=== PATIENT | male | born 1985 | race American Indian/Alaskan Native ===

== ENCOUNTER 2017-01-16 02:00 | Emergency (ER) | payer OTHER ==
[2017-01-16 02:14] VITALS: BP 151/99
== END 2017-01-16 02:40 | disposition left against medical advice (07) ==
LOC: ED 02:00
DX: R06.02 Shortness of breath (principal); Z53.21 Procedure and treatment not carried out due to patient leaving prior to being seen by health care provider

== ENCOUNTER 2017-05-15 10:32 | Emergency (ER) | payer SELFPAY ==
[2017-05-15 10:44] VITALS: BP 142/85
== END 2017-05-15 12:00 | disposition left against medical advice (07) ==
LOC: ED 10:32
DX: R21 Rash and other nonspecific skin eruption (principal); Z53.21 Procedure and treatment not carried out due to patient leaving prior to being seen by health care provider

== ENCOUNTER 2017-05-19 22:14 | Emergency (ER) | payer SELFPAY ==
[2017-05-20] MEDS ORDERED: ULTRAM PO ONE (00:44)
[2017-05-20] MEDS ORDERED: ULTRAM ONE (00:46)
[2017-05-20 04:00] VITALS: BP 150/90
[2017-05-20] MEDS ORDERED: POLYSPORIN TP ONE (04:46)
[2017-05-20] MEDS ORDERED: ANTIBIOTIC OINT TP ONE (04:52)
[2017-05-20] MEDS ORDERED: TRIPLE ANTIBIOTIC TP ONE (04:52)
--- NOTE | 2017-05-20 06:02 | Emergency Department Report ---
- General Chief Complaint: Wound/Laceration Stated Complaint: R BUTTOCK PAIN Source: patient Mode of arrival: Ambulatory Limitations: No Limitations - History of Present Illness Initial Comments: 31 year old male presents to ED stating he has a tear inside of his buttock. patient is stable, neurologically intact and in no acute distress. patient denies blood in stool, and denies pain with bowel movements. patient states he is unsure how he obtained this "tear". -: Gradual, week(s) (1) Location: other (buttock) Context: other (unknown) Associated Symptoms: none - Related Data Home Medications Medication Instructions Recorded Confirmed Last Taken Podofilox mg TRANSDERMA BID 04/15/16 Unknown Allergies Allergy/AdvReac Type Severity Reaction Status Date / Time codeine Allergy Itching Verified 05/15/17 10:38 ED Review of Systems ROS: Stated complaint: R BUTTOCK PAIN Other details as noted in HPI Constitutional: denies: chills, fever Eyes: denies: eye pain, eye discharge, vision change ENT: denies: ear pain, throat pain Respiratory: denies: cough, shortness of breath, wheezing Cardiovascular: denies: chest pain, palpitations Endocrine: no symptoms reported Gastrointestinal: denies: abdominal pain, nausea, diarrhea Genitourinary: denies: urgency, dysuria Musculoskeletal: denies: back pain, joint swelling, arthralgia Skin: denies: rash, lesions Neurological: denies: headache, weakness, paresthesias Psychiatric: denies: anxiety, depression Hematological/Lymphatic: denies: easy bleeding, easy bruising ED Past Medical Hx - Past Medical History Hx Hypertension: Yes Hx GERD: Yes Additional medical history: Genital Warts - Surgical History Hx Open Heart Surgery: Yes (Aortic Valve Surgery) Additional Surgical History: aortic valve opening - Social History Smoking Status: Never Smoker Substance Use Type: Alcohol - Medications Home Medications: Home Medications Medication Instructions Recorded Confirmed Last Taken Type Podofilox mg TRANSDERMA BID 04/15/16 Unknown History ED Physical Exam - General Limitations: No Limitations General appearance: alert, in no apparent distress - Head Head exam: Present: atraumatic, normocephalic - Eye Eye exam: Present: normal appearance - ENT ENT exam: Present: mucous membranes moist - Neck Neck exam: Present: normal inspection - Respiratory Respiratory exam: Present: normal lung sounds bilaterally. Absent: respiratory distress - Cardiovascular Cardiovascular Exam: Present: regular rate, normal rhythm. Absent: systolic murmur, diastolic murmur, rubs, gallop - GI/Abdominal GI/Abdominal exam: Present: soft, normal bowel sounds. Absent: distended, tenderness - Rectal Rectal exam: Present: deferred - Extremities Exam Extremities exam: Present: normal inspection - Back Exam Back exam: Present: normal inspection - Neurological Exam Neurological exam: Present: alert, oriented X3 - Psychiatric Psychiatric exam: Present: normal affect, normal mood - Skin Skin exam: Present: warm, dry, intact, normal color, abrasion (patient has 2cm non infected appearing abrasion to intergluteal cleft. no bleeding noted. mild tenderness to palpation). Absent: rash ED Course Vital Signs 05/19/17 05/20/17 22:47 03:25 Temperature 97.9 F 97.8 F Pulse Rate 63 60 Respiratory 18 16 Rate Blood Pressure 150/92 Blood Pressure 150/90 [Right] O2 Sat by Pulse 100 99 Oximetry ED Medical Decision Making - Medical Decision Making 31 year old male presents to ED with minor abrasion to intergluteal cleft. patient will be given bacitracin ointment for application BID. patient is stable , neurologically intact and in no acute distress. Critical care attestation.: If time is entered above; I have spent that time in minutes in the direct care of this critically ill patient, excluding procedure time. ED Disposition Clinical Impression: Abrasion or friction burn of buttock without infection Disposition: DC-01 TO HOME OR SELFCARE Is pt being admited?: No Does the pt Need Aspirin: No Condition: Stable Instructions: Abrasion (ED) Referrals: PRIMARY CARE, [Primary Care Provider] - 3-5 Days Forms: Work/School Release Form(ED)
== END 2017-05-20 05:32 | disposition home or self-care (01) ==
LOC: ED 22:14
DX: S30.810A Abrasion of lower back and pelvis, initial encounter (principal); I10 Essential (primary) hypertension; K21.9 Gastro-esophageal reflux disease without esophagitis; Z88.6 Allergy status to analgesic agent; X58.XXXA Exposure to other specified factors, initial encounter; Y93.89 Activity, other specified; Y92.89 Other specified places as the place of occurrence of the external cause; Y99.8 Other external cause status
CPT/HCPCS: 99282; A6250

== ENCOUNTER 2017-08-07 10:54 | Emergency (ER) | payer SELFPAY ==
[2017-08-07 11:03] VITALS: BP 145/91
== END 2017-08-07 13:11 | disposition left against medical advice (07) ==
LOC: ED 10:54
DX: Z53.21 Procedure and treatment not carried out due to patient leaving prior to being seen by health care provider (principal)

== ENCOUNTER 2017-08-08 01:47 | Emergency (ER) | payer SELFPAY ==
[2017-08-08 05:38] VITALS: BP 150/90
--- NOTE | 2017-08-08 09:01 | Emergency Department Report ---
HPI - General Chief Complaint: Urogenital-Male Time Seen by Provider: 08/08/17 08:55 - HPI HPI: 32-year-old -[place]ue[place] male male with that's homosexual comes in for rectal itchiness after defecation for one week. Patient does admit to having hemorrhoids and has been using his Anusol suppositories but is having itchiness around the anus. Patient has no other concerns denies any blood in his stool a discharge from his anus. Denies any pain at all. ED Past Medical Hx - Past Medical History Hx Hypertension: Yes Hx GERD: Yes Additional medical history: Genital Warts - Surgical History Hx Open Heart Surgery: Yes (Aortic Valve Surgery) Additional Surgical History: aortic valve opening - Social History Smoking Status: Never Smoker Substance Use Type: None - Medications Home Medications: Home Medications Medication Instructions Recorded Confirmed Last Taken Type Podofilox mg TRANSDERMA BID 04/15/16 Unknown History ED Review of Systems ROS: Stated complaint: BODY RASH Other details as noted in HPI Comment: All other systems reviewed and negative Constitutional: denies: chills, fever Eyes: denies: eye pain, eye discharge, vision change ENT: denies: ear pain, throat pain Respiratory: denies: cough, shortness of breath, wheezing Cardiovascular: denies: chest pain, palpitations Endocrine: no symptoms reported Gastrointestinal: other (anus itching) Genitourinary: denies: urgency, dysuria Musculoskeletal: denies: back pain, joint swelling, arthralgia Skin: denies: rash, lesions Neurological: denies: headache, weakness, paresthesias Physical Exam - Physical Exam Vital Signs: Vital Signs 08/08/17 05:31 Temperature 98 F Pulse Rate 69 Respiratory 16 Rate Blood Pressure 150/90 O2 Sat by Pulse 99 Oximetry General: Nontoxic no acute distress cooperative. Physical Exam: GENERAL APPEARANCE: Well developed, well nourished, in no acute distress. SKIN: Inspection of the skin reveals no rashes, ulcerations or petechiae. RECTAL: Normal perineal exam. Sphincter tone was normal. There was no external hemorrhoids or rectal masses. Stool Hemoccult was negative. Able to appreciate internal hemorrhoids that are nonthrombosed. LYMPH NODES: No lymphadenopathy was appreciated in the groin. EXTREMITIES: No cyanosis, clubbing or edema. NEUROLOGIC: Alert and oriented x 3. Normal affect. Gait was normal. Normal deep tendon reflexes with no pathological reflexes. Sensation to touch was normal. ED Course Vital Signs 08/08/17 05:31 Temperature 98 F Pulse Rate 69 Respiratory 16 Rate Blood Pressure 150/90 O2 Sat by Pulse 99 Oximetry ED Medical Decision Making - Medical Decision Making Patient has been evaluated by this provider fast track. Discussed with patient he needs to use the Anusol suppositories for the internal hemorrhoids. I discussed with him to use Tucks pads to clean the external area of the anus. I also recommended witch supriya for the itchiness as well as after he defecates to clean himself very well. Patient verbalized understanding. Critical care attestation.: If time is entered above; I have spent that time in minutes in the direct care of this critically ill patient, excluding procedure time. ED Disposition Clinical Impression: Rectal itching Disposition: DC-01 TO HOME OR SELFCARE Is pt being admited?: No Does the pt Need Aspirin: No Condition: Stable Additional Instructions: Please use witch supriya or Tucks to clean the anal area. You can continue with the Anusol for the internal hemorrhoids. Follow-up with your primary care provider a environmental services assistant. Referrals: KEISHA SALAZAR MD [Primary Care Provider] - 3-5 Days [facility] [Provider Group] - 3-5 Days Forms: Work/School Release Form(ED)
== END 2017-08-08 09:34 | disposition home or self-care (01) ==
LOC: ED 01:47
DX: K62.89 Other specified diseases of anus and rectum (principal); L29.9 Pruritus, unspecified; I10 Essential (primary) hypertension; K21.9 Gastro-esophageal reflux disease without esophagitis
CPT/HCPCS: 99282

== ENCOUNTER 2018-01-11 19:27 | Emergency (ER) | payer SELFPAY ==
[2018-01-11 19:48] VITALS: BP 149/84
[2018-01-12] MEDS ORDERED: MOTRIN PO ONE (00:03)
--- NOTE | 2018-01-12 00:10 | Emergency Department Report ---
ED General Adult HPI - General Chief complaint: Pain General Stated complaint: FACIAL PAIN Time Seen by Provider: 01/12/18 00:00 Source: patient Mode of arrival: Ambulatory Limitations: No Limitations - History of Present Illness Initial comments: 32-year-old -[place] male comes in complaining for sinus congestion. Patient reports that this going on for 1 week. He admits to nasal congestion, headache, sneezing, runny nose, coughing. Patient denies any fever chills or nausea no vomiting. Patient reports he is taking [id number] sinus medication. Patient has not taken anything for his pain today. -: week(s) (1) Location: head, face Severity scale (0 -10): 8 Quality: stabbing, aching Consistency: constant Improves with: none Associated Symptoms: cough, headaches - Related Data Home Medications Medication Instructions Recorded Confirmed Last Taken Podofilox mg TRANSDERMA BID 04/15/16 Unknown Allergies Allergy/AdvReac Type Severity Reaction Status Date / Time codeine Allergy Itching Verified 05/15/17 10:38 ED Review of Systems ROS: Stated complaint: FACIAL PAIN Other details as noted in HPI ED Past Medical Hx - Past Medical History Hx Hypertension: Yes Hx GERD: Yes Additional medical history: Genital Warts - Surgical History Hx Open Heart Surgery: Yes (Aortic Valve Surgery) Additional Surgical History: aortic valve opening - Social History Smoking Status: Never Smoker Substance Use Type: Alcohol - Medications Home Medications: Home Medications Medication Instructions Recorded Confirmed Last Taken Type Podofilox mg TRANSDERMA BID 04/15/16 Unknown History ED Physical Exam - General Limitations: No Limitations ED Course Vital Signs 01/11/18 01/11/18 19:47 19:57 Temperature 98.3 F 98.3 F Pulse Rate 60 60 Respiratory 16 16 Rate Blood Pressure 149/84 Blood Pressure 149/84 [Right] O2 Sat by Pulse 100 100 Oximetry Critical care attestation.: If time is entered above; I have spent that time in minutes in the direct care of this critically ill patient, excluding procedure time. ED Disposition Condition: Stable Referrals: PRIMARY CARE, [Primary Care Provider] - 3-5 Days
--- NOTE | 2018-01-12 00:17 | Emergency Department Report ---
Chief Complaint: Pain General Stated Complaint: FACIAL PAIN Time Seen by Provider: 01/12/18 00:00 - HPI History of Present Illness: 32-year-old -[place] male comes in complaining for sinus congestion. Patient reports that this going on for 1 week. He admits to nasal congestion, headache, sneezing, runny nose, coughing. Patient denies any fever chills or nausea no vomiting. Patient reports he is taking [id number] sinus medication. Patient has not taken anything for his pain today. - Exam Vital Signs: Vital Signs 01/11/18 01/11/18 19:47 19:57 Temperature 98.3 F 98.3 F Pulse Rate 60 60 Respiratory 16 16 Rate Blood Pressure 149/84 Blood Pressure 149/84 [Right] O2 Sat by Pulse 100 100 Oximetry Physical Exam: Patient's alert and oriented 3 no acute distress. Ears are clear. Turbinates in the nose are hypertrophic Chest is clear to auscultation MSE screening note: Focused history and physical exam performed. Due to findings the following was ordered: Discussed the patient should follow-up with [facility] he can obtain [id number] Monet-D, Claritin-D, Zyrtec-D and ibuprofen 800 mg. ED Disposition for MSE Condition: Stable Referrals: PRIMARY CARE, [Primary Care Provider] - 3-5 Days Forms: Work/School Release Form(ED)
== END 2018-01-12 00:01 | disposition left against medical advice (07) ==
LOC: ED 19:27
DX: R09.81 Nasal congestion (principal); R51 Headache; Z53.21 Procedure and treatment not carried out due to patient leaving prior to being seen by health care provider

== ENCOUNTER → 2018-04-18 09:17 | Emergency (ER) | payer SELFPAY | END | disposition left against medical advice (07) | LOC: ED 09:17 | DX: R10.30 Lower abdominal pain, unspecified (principal); Z53.21 Procedure and treatment not carried out due to patient leaving prior to being seen by health care provider ==

== ENCOUNTER 2018-04-19 03:49 | Emergency (ER) | payer SELFPAY ==
[2018-04-19 04:00] VITALS: BP 140/82
== END 2018-04-19 04:40 | disposition left against medical advice (07) ==
LOC: ED 03:49
DX: R21 Rash and other nonspecific skin eruption (principal); Z53.21 Procedure and treatment not carried out due to patient leaving prior to being seen by health care provider

== ENCOUNTER 2018-05-08 13:24 | Emergency (ER) | payer SELFPAY ==
[2018-05-08 13:37] VITALS: BP 139/88
== END 2018-05-08 14:25 | disposition left against medical advice (07) ==
LOC: ED 13:24
DX: H10.32 Unspecified acute conjunctivitis, left eye (principal); Z53.21 Procedure and treatment not carried out due to patient leaving prior to being seen by health care provider

== ENCOUNTER 2019-01-24 16:36 | Emergency (ER) | payer SELFPAY ==
--- NOTE | 2019-01-24 17:04 | Emergency Department Report ---
Blank Doc - Documentation Documentation: This is a 33-year-old male that presents with increased thirst. Denies any ot her complaints. This initial assessment/diagnostic orders/clinical plan/treatment(s) is/are subject to change based on patient's health status, clinical progression and re- assessment by fellow clinical providers in the ED. Further treatment and workup at subsequent clinical providers discretion. Patient/guardians urged not to elope from the ED as their condition may be serious if not clinically assessed and managed. Initial orders include: 1- Patient sent to [facility] for further evaluation and treatment 2- ua 3- labs
[2019-01-24 17:05] VITALS: BP 152/91
[2019-01-24 17:38] LABS: Bilirubin,Urine NEG (Negative); Blood,Urine NEG (Negative); Color,Urine Straw (Yellow); Protein,Urine <15 mg/dL mg/dL (Negative); Urobilinogen,Urine < 2.0 mg/dL (<2.0)
[2019-01-24 17:50] LABS: WBC,Urine < 1.0 /HPF (0.0-6.0)
== END 2019-01-24 17:04 | disposition left against medical advice (07) ==
LOC: ED 16:36
DX: E86.0 Dehydration (principal); Z53.21 Procedure and treatment not carried out due to patient leaving prior to being seen by health care provider
CPT/HCPCS: 81001; 82962

== ENCOUNTER 2019-09-23 09:17 | Emergency (ER) | payer SELFPAY ==
--- NOTE | 2019-09-23 09:42 | Emergency Department Report ---
ED Rash HPI - HPI Chief Complaint: Skin Rash Stated Complaint: FACE VÁZQUEZ Time Seen by Provider: 09/23/19 09:32 Duration: 2 Days Suspected Cause: Medication Rash Symptoms: Yes Itching, Yes Blistering, No Facial Swelling, No Tongue/Oral Swelling, No Choking Sensation, No Wheezing/Dyspnea, No Peeling Severity: mild Other History: 34-year-old -[place] male went to his doctor to treat his acne. He began to utilize this facial cream with acid and the ingredients for removal of the acne once applying the cream he noticed a burning sensation to his face. On the second day it became more intense resulting in skin color change and some swelling accompanied with itching. He tried to wash the area vigorously to resolve the symptoms and came to emergency department for for further treatment options. Reports no fever, chills, sweats. No odynophagia or dysphagia. ED Review of Systems ROS: Stated complaint: FACE VÁZQUEZ Other details as noted in HPI Comment: All other systems reviewed and negative ED Past Medical Hx - Past Medical History Hx Hypertension: Yes Hx GERD: Yes Additional medical history: Genital Warts. Congenital heart disease - Surgical History Hx Open Heart Surgery: Yes (Aortic Valve Surgery) Additional Surgical History: AVR - Social History Smoking Status: Never Smoker Substance Use Type: Alcohol - Medications Home Medications: Home Medications Medication Instructions Recorded Confirmed Last Taken Type Podofilox mg TRANSDERMA BID 04/15/16 Unknown History Silver Sulfadiazine [Silvadene] 0.5 gm TP BID #20 cream..g. 09/23/19 Unknown Rx Rash Exam - Exam General: Vital signs noted. No distress. Alert and acting appropriately. HEENT: No Periorbital Edema, No Conjuctival Injection, No Chemosis, No Perioral Edema, No Tongue Edema, No Uvular Edema, No Compromised Airway, No Drooling Lungs: Yes Good Air Exchange (Normal Breath Sounds), No Wheezes, No Ronchi, No Stridor, No Cough, No Labored Respirations, No Retractions, No Use of Accessory Muscles, No Other Abnormal Lung Sounds Heart: Yes Regular, No Murmur Front/Back of Body, Lg (Color): 1 - Hyperpigmentation to the cheeks of the face with some mild erythema some local swelling noted 1 small area of broken skin blistering suggestive of a second-degree chemical burn Skin: Yes Tenderness, Yes Erythema Other: Positive: Abdomen Normal, Neurologic Normal, Musculoskeletal Normal Critical care attestation.: If time is entered above; I have spent that time in minutes in the direct care of this critically ill patient, excluding procedure time. ED Disposition Clinical Impression: Contact dermatitis, Medication reaction Disposition: MED SCREENING EXAM-LEFT Is pt being admited?: No Does the pt Need Aspirin: No Condition: Stable Instructions: Zinc Oxide (On the skin), Acute Rash (ED), Antibiotic Medication Allergy (ED), Allergies (ED) Additional Instructions: You may utilize something yqvr-bvp-[id number] that is similar to Silvadene for your wound also aloe works very well to help to resolve these wounds well. Please resolve with steroid utilization on your face Prescriptions: Silver Sulfadiazine [Silvadene] 0.5 gm TP BID #20 cream..g. Referrals: BO ABDI MD [Staff Physician] - 3-5 Days
== END 2019-09-23 10:00 | disposition left against medical advice (07) ==
LOC: ED 09:17
DX: L25.9 Unspecified contact dermatitis, unspecified cause (principal); T50.905A Adverse effect of unspecified drugs, medicaments and biological substances, initial encounter; I10 Essential (primary) hypertension; K21.9 Gastro-esophageal reflux disease without esophagitis; Z98.890 Other specified postprocedural states; Z79.899 Other long term (current) drug therapy; Z88.5 Allergy status to narcotic agent; Y92.89 Other specified places as the place of occurrence of the external cause
CPT/HCPCS: 99282

== ENCOUNTER 2020-02-11 22:45 | Emergency (ER) | payer SELFPAY | END 2020-02-11 22:50 | disposition left against medical advice (07) | LOC: ED 22:45 | DX: R00.0 Tachycardia, unspecified (principal); Z53.21 Procedure and treatment not carried out due to patient leaving prior to being seen by health care provider ==

== ENCOUNTER 2020-05-06 10:43 | Emergency (ER) | payer OTHER ==
--- NOTE | 2020-05-06 10:47 | Emergency Department Report ---
Blank Doc - Documentation Documentation: 34-year-old male that presents with n/v and generlized weakness. Stated has b een taking Doxy for 10 days for acne and believes its related to that. Exam: no abdominal pain This initial assessment/diagnostic orders/clinical plan/treatment(s) is/are subject to change based on patient's health status, clinical progression and re- assessment by fellow clinical providers in the ED. Further treatment and workup at subsequent clinical providers discretion. Patient/guardians urged not to elope from the ED as their condition may be serious if not clinically assessed and managed. Initial orders include: 1- Patient sent to [facility] for further evaluation and treatment 2- labs
[2020-05-06] MEDS ORDERED: ONDANSETRON 4 MG ODT TAB PO ONE (11:10)
[2020-05-06 11:11] VITALS: BP 143/91
--- NOTE | 2020-05-06 11:13 | Emergency Department Report ---
HPI - General Chief Complaint: Nausea/Vomiting/Diarrhea Time Seen by Provider: 05/06/20 10:44 - HPI HPI: This is a 34-year-old male who presents to the emergency department with a complaint of a 3 to 4-day history of some nausea and vomiting. The patient just finished a two-week course of prednisone and a 10-day course of doxycycline to treat "bacterial acne" that was prescribed by his microelectronics engineer. Patient also says that he had COVID-19 back in January and "I was placed on a bunch of antibiotics and medications." He denies any abdominal pain but says that his stomach has been "gurgling" and he has been having an increase in acid reflux. He also has a past medical history of hypertension and previous aortic valve repair. No recent travel or sick contacts at home. The patient is still currently nauseated but last vomited last evening. ED Past Medical Hx - Past Medical History Previous Medical History?: Yes Hx Hypertension: Yes Hx GERD: Yes Additional medical history: Genital Warts. Congenital heart disease, Covid-19 in - Surgical History Past Surgical History?: Yes Hx Open Heart Surgery: Yes (Aortic Valve Surgery) Additional Surgical History: AVR - Social History Smoking Status: Never Smoker Substance Use Type: Alcohol - Medications Home Medications: Home Medications Medication Instructions Recorded Confirmed Last Taken Type Podofilox mg TRANSDERMA BID 04/15/16 Unknown History Silver Sulfadiazine [Silvadene] 0.5 gm TP BID #20 cream..g. 09/23/19 Unknown Rx Ondansetron [Zofran Odt] 4 mg PO Q8HR PRN #15 tab.rapdis 05/06/20 Unknown Rx ED Review of Systems ROS: Stated complaint: VOMIT/MEDS Other details as noted in HPI Comment: All other systems reviewed and negative Constitutional: denies: chills, fever Eyes: denies: eye pain, vision change ENT: denies: ear pain, throat pain Respiratory: denies: cough, shortness of breath Cardiovascular: denies: chest pain, palpitations Gastrointestinal: nausea, vomiting. denies: abdominal pain, diarrhea Genitourinary: denies: dysuria, discharge Musculoskeletal: denies: back pain, arthralgia Skin: denies: rash, lesions Neurological: denies: headache, weakness Physical Exam - Physical Exam Vital Signs: Vital Signs 05/06/20 10:46 Temperature 97.7 F Pulse Rate 76 Respiratory 18 Rate Blood Pressure 137/85 O2 Sat by Pulse 100 Oximetry Physical Exam: GENERAL: The patient is well-developed well-nourished. HENT: Normocephalic. Atraumatic. Patient has moist mucous membranes. EYES: Extraocular motions are intact. NECK: Supple. Trachea is midline. CHEST/LUNGS: Clear to auscultation. There is no respiratory distress noted. HEART/CARDIOVASCULAR: Regular. There is no tachycardia. ABDOMEN: Abdomen is soft, nontender. Patient has hyperactive bowel sounds. There is no abdominal distention. SKIN: Skin is warm and dry. NEURO: The patient is awake, alert, and oriented. The patient is cooperative. Normal speech. MUSCULOSKELETAL: There is no tenderness or deformity. ED Course Vital Signs 05/06/20 10:46 Temperature 97.7 F Pulse Rate 76 Respiratory 18 Rate Blood Pressure 137/85 O2 Sat by Pulse 100 Oximetry ED Medical Decision Making - Lab Data Result diagrams: 05/06/20 10:55 05/06/20 10:55 - Medical Decision Making This patient presents to the emergency department with some nausea and vomiting towards the end of his antibiotic and prednisone course that he has been taking for some acne. On examination the abdomen is soft, nontender and nondistended, nontoxic in appearance. There are some hyperactive bowel sounds. The patient still complains of some nausea but there has been no vomiting since last night. He was given a dose of Zofran ODT. Labs have been unremarkable including CBC and metabolic panel. Vital signs have been reassuring including being afebrile. Patient has good outpatient follow-up with primary care and dermatology. He has been instructed to take an [id number] probiotic, continue treating his GERD, and to return to the emergency department with any worsening of his symptoms or with any acute distress. The patient is done with the antibiotic and steroid. Critical Care Time: No Critical care attestation.: If time is entered above; I have spent that time in minutes in the direct care of this critically ill patient, excluding procedure time. ED Disposition Clinical Impression: Nausea & vomiting Qualifiers: Vomiting type: unspecified Vomiting Intractability: non-intractable Qualified Code(s): R11.2 - Nausea with vomiting, unspecified Disposition: DC-01 TO HOME OR SELFCARE Is pt being admited?: No Condition: Stable Instructions: Acute Nausea and Vomiting (ED) Additional Instructions: Please follow-up with your primary care physician and microelectronics engineer in the next few days. Return to the emergency department with any worsening of your symptoms, new or concerning symptoms that were not addressed during this emergency department visit, or with any acute distress. Prescriptions: Ondansetron [Zofran Odt] 4 mg PO Q8HR PRN #15 tab.rapdis PRN Reason: Nausea Referrals: PCP, Your [Other] - 3-5 Days Vice President [employer] Communications, Your [Other] - 3-5 Days Time of Disposition: 12:25
[2020-05-06 11:28] LABS: Basophils % (Auto) 0.4 % (0.0-1.8); Eosinophils # (Auto) 0.1 K/mm3 (0.0-0.4); Eosinophils % (Auto) 0.6 % (0.0-4.3); Hemoglobin 14.5 gm/dl (11.8-15.2); Lymphocytes # (Auto) 2.4 K/mm3 (1.2-5.4); Lymphocytes % (Auto) 25.6 % (13.4-35.0); Mean Corpuscular HGB Conc 34 % (32-34); Mean Corpuscular Volume 93 fl (84-94); Monocytes # (Auto) 0.8 K/mm3 (0.0-0.8); Monocytes % (Auto) 8.9 % (0.0-7.3); Platelet Count 209 K/mm3 (140-440); Red Blood Count 4.61 M/mm3 (3.65-5.03); Red Cell Distribution Width 13.5 % (13.2-15.2)
[2020-05-06 11:51] LABS: Alanine Aminotransferase 16 units/L (7-56); Albumin 4.1 g/dL (3.9-5); BUN/Creatinine Ratio 14; Blood Urea Nitrogen 19 mg/dL (9-20); Calcium 9.2 mg/dL (8.4-10.2); Hemolysis Index 16
== END 2020-05-06 12:40 | disposition home or self-care (01) ==
LOC: ED 10:43
DX: R11.2 Nausea with vomiting, unspecified (principal); I10 Essential (primary) hypertension; K21.9 Gastro-esophageal reflux disease without esophagitis; Z98.890 Other specified postprocedural states; Z79.899 Other long term (current) drug therapy; Z88.4 Allergy status to anesthetic agent; Z88.1 Allergy status to other antibiotic agents
CPT/HCPCS: 36415; 80053; 85025; Q0162

== ENCOUNTER 2021-07-20 04:46 | Emergency (ER) | payer OTHER ==
[2021-07-20 05:01] VITALS: BP 159/97
== END 2021-07-20 07:03 | disposition left against medical advice (07) ==
LOC: ED 04:46
DX: R00.2 Palpitations (principal); Z53.21 Procedure and treatment not carried out due to patient leaving prior to being seen by health care provider

== ENCOUNTER 2022-01-21 15:45 | Emergency (ER) | payer SELFPAY ==
[2022-01-21 16:16] VITALS: BP 156/96
--- NOTE | 2022-01-21 16:41 | XRay Report ---
CHEST 2 VIEWS INDICATION / CLINICAL INFORMATION: COUGH. COMPARISON: None. FINDINGS: SUPPORT DEVICES: None. HEART / MEDIASTINUM: No significant abnormality. LUNGS / PLEURA: No significant pulmonary or pleural abnormality. No pneumothorax. ADDITIONAL FINDINGS: No significant additional findings. IMPRESSION: 1. No acute findings. Signer Name: Abraham Jolley MD Signed: 01/21/2022 4:37 PM Workstation Name: [id number]
== END 2022-01-21 21:14 | disposition left against medical advice (07) ==
LOC: ED 15:45
DX: R05.9 Cough, unspecified (principal); Z53.21 Procedure and treatment not carried out due to patient leaving prior to being seen by health care provider
CPT/HCPCS: 71046

== ENCOUNTER 2022-04-02 08:58 | Emergency (ER) | payer SELFPAY ==
--- NOTE | 2022-04-02 11:48 | Emergency Department Report ---
ED Rash HPI - HPI Chief Complaint: Skin Rash Stated Complaint: BODY PAIN Time Seen by Provider: 04/02/22 11:24 Duration: 2 Days Location: Chest, Back, Abdomen Rash Symptoms: Yes Itching, No Facial Swelling, No Tongue/Oral Swelling, No Breathing Difficulties, No Choking Sensation, No Wheezing/Dyspnea, No Peeling, No Blistering, No Fever, No Lightheaded, No Malaise, No Myalgias Severity: mild Other History: Patient is a 36-year-old male who states he was downtown a couple days ago and got a couple insect bites on his ankle and wrist that have now resolved. However 2 days ago he noticed a rash on his back that is itchy. Some on his abdomen and chest as well. Denies any recent sore throat fever or respiratory symptoms. Feels well otherwise. Partner is without symptoms. ED Review of Systems ROS: Stated complaint: BODY PAIN Other details as noted in HPI Comment: All other systems reviewed and negative Constitutional: denies: chills, fever Eyes: denies: eye pain, eye discharge ENT: denies: throat pain, congestion Respiratory: denies: cough, shortness of breath Cardiovascular: denies: chest pain, palpitations, edema Endocrine: denies: excessive sweating, intolerance to cold, intolerance to heat Gastrointestinal: denies: abdominal pain, nausea, vomiting, diarrhea, constipation Genitourinary: denies: urgency, dysuria, frequency, hematuria Musculoskeletal: denies: back pain, joint swelling Skin: as per HPI Neurological: denies: headache, weakness, numbness, paresthesias, confusion, abnormal gait, vertigo Psychiatric: denies: anxiety, depression Hematological/Lymphatic: denies: easy bleeding, easy bruising ED Past Medical Hx - Past Medical History Hx Hypertension: Yes Hx GERD: Yes Additional medical history: Genital Warts. Congenital heart disease, Covid-19 in - Surgical History Hx Open Heart Surgery: Yes (Aortic Valve Surgery) Additional Surgical History: AVR - Social History Smoking Status: Never Smoker Substance Use Type: Alcohol - Medications Home Medications: Home Medications Medication Instructions Recorded Confirmed Last Taken Type Permethrin 5% [Acticin 5% CREAM] 1 applicatio TP ONCE 1 Days #1 tube 04/02/22 Unknown Rx hydrOXYzine HCL [Atarax] 25 mg PO Q6HR PRN #40 tablet 04/02/22 Unknown Rx Rash Exam - Exam General: Vital signs noted. No distress. Alert and acting appropriately. HEENT: No Periorbital Edema, No Conjuctival Injection, No Chemosis, No Perioral Edema, No Tongue Edema, No Uvular Edema, No Compromised Airway, No Drooling Lungs: Yes Good Air Exchange, No Wheezes, No Ronchi, No Stridor, No Cough, No Labored Respirations, No Retractions, No Use of Accessory Muscles, No Other Abnormal Lung Sounds Heart: Yes Regular, No Murmur Skin: Yes Maculopapular Rash, No Urticarial Rash, No Bulla(e), No Excoriations, No Weeping, No Tenderness, No Erythema, No Edema, No Encrustations Other: Positive: Abdomen Normal, Neurologic Normal, Musculoskeletal Normal ED Course Vital Signs 04/02/22 09:31 Temperature 98.5 F Pulse Rate 63 Respiratory 16 Rate Blood Pressure 148/91 [Right] O2 Sat by Pulse 100 Oximetry ED Medical Decision Making - Medical Decision Making Doubt scabies. Likely pityriasis rosea. We will treat pruritus and precautionary Elimite for scabies. - Differential Diagnosis Scabies. Pityriasis rosea. Dermatitis. Critical care attestation.: If time is entered above; I have spent that time in minutes in the direct care of this critically ill patient, excluding procedure time. ED Disposition Clinical Impression: Dermatitis Disposition: 01 HOME / SELF CARE / HOMELESS Is pt being admited?: No Condition: Stable Instructions: Scabies, Adult, Pityriasis Rosea, Atopic Dermatitis Additional Instructions: Elimite as per instructions. Atarax for itching. Follow-up with dermatology if not improving in 14 days Prescriptions: Permethrin 5% [Acticin 5% CREAM] 1 applicatio TP ONCE 1 Days #1 tube hydrOXYzine HCL [Atarax] 25 mg PO Q6HR PRN #40 tablet PRN Reason: Itching Referrals: PRIMARY CARE, [Primary Care Provider] - 3-5 Days NICHO LYN MD [Staff Physician] - 3-5 Days Forms: Work/School Release Form(ED) Time of Disposition: 11:57
[2022-04-02 12:05] VITALS: BP 136/88
== END 2022-04-02 12:05 | disposition home or self-care (01) ==
LOC: ED 08:58
DX: L30.9 Dermatitis, unspecified (principal); I10 Essential (primary) hypertension; K21.9 Gastro-esophageal reflux disease without esophagitis; Z72.89 Other problems related to lifestyle; Z79.899 Other long term (current) drug therapy; Z88.5 Allergy status to narcotic agent; Z88.1 Allergy status to other antibiotic agents
CPT/HCPCS: 99282